=== PATIENT | male | born 1980 | race Caucasian/White ===

== ENCOUNTER 2023-05-27 19:49 | Emergency (ER) | payer OTHER ==
[2023-05-27 20:50] VITALS: BP 145/95; PULSE 79
[2023-05-27] MEDS ORDERED: Take Home: Acetaminophen/HYDROcodone 325-5 MG, 5 Tab Pack PO ONE (20:54)
== END 2023-05-27 21:09 | disposition home or self-care (01) ==
LOC: VM.ED 19:49
DX: S46.212A Strain of muscle, fascia and tendon of other parts of biceps, left arm, initial encounter (principal); Z79.899 Other long term (current) drug therapy; X50.0XXA Overexertion from strenuous movement or load, initial encounter
CPT/HCPCS: 73060-LT; 73080-LT; 99283; A9270-GY

== ENCOUNTER 2024-05-09 16:36 | Emergency (ER) | payer OTHER ==
[2024-05-09 16:59] VITALS: BP 135/91; PULSE 90
== END 2024-05-09 18:54 | disposition home or self-care (01) ==
LOC: VM.ED 16:36
DX: S46.211A Strain of muscle, fascia and tendon of other parts of biceps, right arm, initial encounter (principal); Z90.49 Acquired absence of other specified parts of digestive tract; Z79.899 Other long term (current) drug therapy; Z88.5 Allergy status to narcotic agent; X50.0XXA Overexertion from strenuous movement or load, initial encounter
CPT/HCPCS: 73080-RT; 99283